=== PATIENT | male | born 1950 | race Caucasian/White ===

== ENCOUNTER 2018-08-18 19:30 | Outpatient (CLI) | payer BC | END 2018-08-18 19:31 | disposition home or self-care (01) | LOC: SLEEPLAB 19:30 | PROVIDERS: ATTEND Family Medicine | DX: G47.10 Hypersomnia, unspecified (principal); R53.83 Other fatigue; R40.0 Somnolence; R06.83 Snoring; G47.00 Insomnia, unspecified; I10 Essential (primary) hypertension; I25.10 Atherosclerotic heart disease of native coronary artery without angina pectoris; G47.33 Obstructive sleep apnea (adult) (pediatric) | CPT/HCPCS: 95811 ==

== ENCOUNTER 2021-09-08 14:31 | Outpatient (CLI) | payer MEDICARE, BC ==
[2021-09-08 15:54] LABS: #Basophils 0.1 10x3/uL (0.0-0.2); #Eosinphils 0.3 10x3/uL (0.0-0.5); #Monocytes 0.8 10x3/uL (0.0-1.1); #Neutrophils 3.5 10x3/uL (1.5-8.4); %Basophils 0.8 % (0.0-2.0); %Eosinophils 3.5 % (0.0-6.0); %Lymphocytes 37.4 % (18.0-47.0); %Monocytes 10.7 % (0.0-10.0); %Neutrophils 47.1 % (40.0-75.0); Hemoglobin 13.4 g/dL (13.5-17.5); Mean Corpuscular HGB CONC 32.4 g/dL (32.0-36.0); Mean Corpuscular Hemoglobin 31.1 pg (27.0-33.0); Mean Corpuscular Volume 95.8 fl (81.2-95.1); Mean Platelet Volume 9.6 fl (7.4-10.4); Platelet Count 209 10x3/uL (150-450); RBC Distribution Width 12.4 % (11.5-14.5); Red Blood Cell (RBC) Count 4.31 10x6/uL (4.32-5.72); White Blood Cell (WBC) Count 7.4 10x3/uL (3.5-10.5)
[2021-09-08 16:08] LABS: Bilirubin Neg (Negative); Blood, Urine 50 (Negative); Clarity Clear (Clear); Glucose, Urine (Dipstick) Normal (Negative); Ketone, Urine 5 mg/dL (Negative); Leukocyte Negative (Negative); Nitrite Negative (Negative); Protein, Urine (Dipstick) 15 mg/dl (Neg-Trace); Specific Gravity, Urine 1.025 (1.002-1.036)
[2021-09-08 16:19] LABS: Anion Gap 13 mmol/L (10-20); BUN (Urea Nitrogen) 15 mg/dL (8.4-25.7); Calc. Creatinine Clearance 0 mL/min (70-130); Calcium 8.8 mg/dL (7.8-10.44); Carbon Dioxide 28 mmol/L (23-31); Chloride 106 mmol/L (98-107); Glucose 90 mg/dL (80-115); Potassium 4.2 mmol/L (3.5-5.1); Sodium 143 mmol/L (136-145)
[2021-09-09 13:49] LABS: SARS-CoV-2 PCR by NAA Not Detected (NotDetected)
== END 2021-09-08 14:32 | disposition home or self-care (01) ==
LOC: LABBT 14:31
PROVIDERS: ATTEND Orthopaedic Surgery Hand Surgery
DX: Z01.818 Encounter for other preprocedural examination (principal); M65.321 Trigger finger, right index finger; M19.041 Primary osteoarthritis, right hand; M15.1 Heberden's nodes (with arthropathy); Z20.822 Contact with and (suspected) exposure to COVID-19
CPT/HCPCS: 80048; 81003; 85025; 93005; U0003; U0005; 93010

== ENCOUNTER 2021-09-13 05:36 | Day surgery (SDC) | payer MEDICARE, BC ==
[2021-09-06 11:49] VITALS: BMI 29.6
[2021-09-13] MEDS ORDERED: ceFAZolin 2 GM/DEX 5% 100 ML BAG ONE ×2 (06:26→08:48)
[2021-09-13 07:30] LABS: #Basophils 0.1 thou/uL (0.0-0.2); #Eosinphils 0.2 thou/uL (0.0-0.7); #Lymphocytes 3.1 thou/uL (1.20-3.40); #Monocytes 0.6 thou/uL (0.11-0.59); #Neutrophils 4.2 thou/uL (1.40-6.50); %Basophils 1.3 % (0.0-1.0); %Neutrophils 50.7 % (42.0-75.0); Hemoglobin 14.1 g/dL (14.0-18.0); Mean Corpuscular HGB CONC 33.5 g/dL (32.0-36.0); Mean Corpuscular Hemoglobin 31.8 pg (27.0-31.0); Mean Corpuscular Volume 94.9 fL (78.0-98.0); Mean Platelet Volume 7.2 fL (7.4-10.4); Platelet Count 196 thou/uL (130-400); RBC Distribution Width 11.8 % (11.5-14.5); Red Blood Cell (RBC) Count 4.45 mill/uL (4.70-6.10); White Blood Cell (WBC) Count 8.2 thou/uL (4.8-10.8)
[2021-09-13] MEDS ORDERED: Midazolam HCl 2 mg/2 ml Vial ONE (08:12)
[2021-09-13] MEDS ORDERED: Fentanyl 100 MCG/2 ML VIAL ONE (08:12)
[2021-09-13] MEDS ORDERED: Bupivacaine PF 0.5% 30 ML VIAL ONE ×2 (08:30→11:28)
[2021-09-13] MEDS ORDERED: Bacitracin Zinc Ointment 30 gm TUBE ONE (08:30)
[2021-09-13] MEDS ORDERED: Neomycin-Polymyxin 1 ML AMP ONE (08:30)
[2021-09-13] MEDS ORDERED: Betamet Acet/Betamet Na Ph 30 MG/5 ML VIAL ONE (08:30)
[2021-09-13 08:49] LABS: Bacteria/HPF None Seen HPF (None Seen); Bilirubin Negative (Negative); Blood, Urine Negative (Negative); Clarity Clear (Clear); Glucose, Urine (Dipstick) Normal (Negative); Ketone, Urine Negative (Negative); Leukocyte Negative Leu/uL (Negative); Nitrite Negative (Negative); Protein, Urine (Dipstick) 50 mg/dL (Neg-Trace); RBC/HPF 0-3 HPF (0-3); Specific Gravity, Urine 1.024 (1.002-1.036); Squamous Epithelial None Seen HPF (0-3); Urobilinogen Normal mg/dL (Less than 2); WBC/HPF 0-3 HPF (0-3); pH, Urine 6.5 (5.0-9.0)
[2021-09-13 08:51] LABS: Urine Culture Reflex No No
[2021-09-13] MEDS ORDERED: Bupivacaine HCl 0.5%/Epinephrine 1:200,000/PF 30 ml Vial ONE (08:56)
[2021-09-13] MEDS ORDERED: Lidocaine 1% PF 5 ML VIAL ONE (08:56)
[2021-09-13] MEDS ORDERED: PROPOFOL 200 MG/20 ML VIAL ONE (08:56)
[2021-09-13] MEDS ORDERED: ePHEDrine 50 MG/ML VIAL ONE (08:56)
[2021-09-13] MEDS ORDERED: Ketorolac Tromethamine 30 MG/ML VIAL ONE (08:56)
[2021-09-13] MEDS ORDERED: Ondansetron PF 4 MG/2 ML Vial ONE (08:56)
== END 2021-09-13 13:40 | disposition home or self-care (01) ==
LOC: SDC 05:36
PROVIDERS: ATTEND Orthopaedic Surgery Hand Surgery
PROC: 0LN70ZZ Release Right Hand Tendon, Open Approach (ICD-10-PCS; principal; 2021-09-13)
PROC: 0LN70ZZ Release Right Hand Tendon, Open Approach (ICD-10-PCS; 2021-09-13)
PROC: 0LB70ZZ Excision of Right Hand Tendon, Open Approach (ICD-10-PCS; 2021-09-13)
PROC: 0RGW04Z Fusion of Right Finger Phalangeal Joint with Internal Fixation Device, Open Approach (ICD-10-PCS; 2021-09-13)
PROC: 0RGW04Z Fusion of Right Finger Phalangeal Joint with Internal Fixation Device, Open Approach (ICD-10-PCS; 2021-09-13)
PROC: 3E0T3BZ Introduction of Anesthetic Agent into Peripheral Nerves and Plexi, Percutaneous Approach (ICD-10-PCS; 2021-09-13)
DX: M19.041 Primary osteoarthritis, right hand (principal); M65.321 Trigger finger, right index finger; M65.351 Trigger finger, right little finger; M65.841 Other synovitis and tenosynovitis, right hand; M67.441 Ganglion, right hand; E11.9 Type 2 diabetes mellitus without complications; E78.5 Hyperlipidemia, unspecified; I25.2 Old myocardial infarction; G47.30 Sleep apnea, unspecified; I10 Essential (primary) hypertension; N52.9 Male erectile dysfunction, unspecified; M10.9 Gout, unspecified; Z86.16 Personal history of COVID-19; Z79.82 Long term (current) use of aspirin; Z79.84 Long term (current) use of oral hypoglycemic drugs; Z79.899 Other long term (current) drug therapy; Z95.1 Presence of aortocoronary bypass graft; Z98.890 Other specified postprocedural states
CPT/HCPCS: 26055; 26160; 26860; 26861; 73140; 81001; 85025; C1894; 36415; 76000; J0702; J1885; J2250; J2405; J2704; J3010; J3490; S0020

== ENCOUNTER 2022-01-17 15:01 | Outpatient (CLI) | payer MEDICARE, BC | END 2022-01-17 15:02 | disposition home or self-care (01) | LOC: BICCT 15:01 | PROVIDERS: ATTEND Orthopaedic Surgery Hand Surgery | DX: S42.454A Nondisplaced fracture of lateral condyle of right humerus, initial encounter for closed fracture (principal); M25.511 Pain in right shoulder; M25.731 Osteophyte, right wrist ==

== ENCOUNTER 2022-02-14 09:00 | Outpatient (CLI) | payer MEDICARE, BC | END 2022-02-14 09:01 | disposition home or self-care (01) | LOC: BICMRI 09:00 | PROVIDERS: ATTEND Physician Assistant | DX: M54.42 Lumbago with sciatica, left side (principal); M47.816 Spondylosis without myelopathy or radiculopathy, lumbar region; M47.817 Spondylosis without myelopathy or radiculopathy, lumbosacral region; M47.815 Spondylosis without myelopathy or radiculopathy, thoracolumbar region; M48.8X6 Other specified spondylopathies, lumbar region | CPT/HCPCS: 72148 ==

== ENCOUNTER 2022-03-24 09:33 | Outpatient (CLI) | payer MEDICARE, BC | END 2022-03-24 09:34 | disposition home or self-care (01) | LOC: MRI 09:33 | PROVIDERS: ATTEND Orthopaedic Surgery Hand Surgery | DX: M75.101 Unspecified rotator cuff tear or rupture of right shoulder, not specified as traumatic (principal); M75.50 Bursitis of unspecified shoulder; M75.01 Adhesive capsulitis of right shoulder ==

== ENCOUNTER 2022-05-11 10:13 | Outpatient (CLI) | payer MEDICARE, BC ==
[2022-05-11 11:29] LABS: Hemoglobin 14.7 g/dL (13.5-17.5); Mean Corpuscular HGB CONC 34.2 g/dL (32.0-36.0); Mean Corpuscular Hemoglobin 31.6 pg (27.0-33.0); Mean Corpuscular Volume 92.5 fl (81.2-95.1); Mean Platelet Volume 10.1 fl (7.4-10.4); Platelet Count 166 10x3/uL (150-450); RBC Distribution Width 13.3 % (11.5-14.5); Red Blood Cell (RBC) Count 4.65 10x6/uL (4.32-5.72)
[2022-05-11 11:52] LABS: PTT 25.3 sec (22.0-33.0); Prothrombin Time 10.7 sec (9.5-12.1)
[2022-05-11 12:04] LABS: Anion Gap 14 mmol/L (10-20); BUN (Urea Nitrogen) 16 mg/dL (8.4-25.7); Calc. Creatinine Clearance 0 mL/min (70-130); Calcium 8.9 mg/dL (7.8-10.44); Carbon Dioxide 27 mmol/L (23-31); Chloride 105 mmol/L (98-107); Estimated GFR 91; Glucose 152 mg/dL (80-115); Sodium 142 mmol/L (136-145)
== END 2022-05-11 10:14 | disposition home or self-care (01) ==
LOC: LABBT 10:13
PROVIDERS: ATTEND Surgery
DX: Z01.818 Encounter for other preprocedural examination (principal); M51.16 Intervertebral disc disorders with radiculopathy, lumbar region; M48.062 Spinal stenosis, lumbar region with neurogenic claudication; Z20.822 Contact with and (suspected) exposure to COVID-19
CPT/HCPCS: 80048; 85027; 85610; 85730; 87811; 93005; 93010

== ENCOUNTER 2022-05-16 07:59 | Observation (INO) | payer MEDICARE, BC ==
[2022-05-16] MEDS ORDERED: SUGAMMADEX SODIUM 200 MG/2 ML VIAL ONE (09:06)
[2022-05-16] MEDS ORDERED: HYDROmorphone 2 MG/ML VIAL ONE (09:06)
[2022-05-16] MEDS ORDERED: Thrombin 5000 UNITS/5 ML VIAL ONE ×3 (09:25→12:13)
[2022-05-16] MEDS ORDERED: Bacitracin Zinc Ointment 30 gm TUBE ONE (09:26)
[2022-05-16] MEDS ORDERED: CEFAZOLIN 2 GM VIAL ONE (09:58)
[2022-05-16] MEDS ORDERED: Sodium Chloride 0.9% 100 ML ONE (09:58)
[2022-05-16] MEDS ORDERED: Acetaminophen 325 MG TAB PO PRN (10:03)
[2022-05-16] MEDS ORDERED: Acetaminophen/Codeine 30-300mg Tablet PO PRN (10:03)
[2022-05-16] MEDS ORDERED: traMADol HCl 50 MG TAB PO PRN (10:03)
[2022-05-16] MEDS ORDERED: Morphine 2 MG/ML VIAL SLOW IVP PRN (10:05)
[2022-05-16] MEDS ORDERED: diphenhydrAMINE 25 MG CAP PO PRN (10:05)
[2022-05-16] MEDS ORDERED: Ketorolac Tromethamine 30 MG/ML VIAL ONE (10:07)
[2022-05-16] MEDS ORDERED: Phenylephrine 10 MG/ML VIAL ONE (10:07)
[2022-05-16] MEDS ORDERED: Dexamethasone 20 MG/5 ML VIAL ONE (10:07)
[2022-05-16] MEDS ORDERED: Ondansetron PF 4 MG/2 ML Vial ONE (10:07)
[2022-05-16] MEDS ORDERED: hydrALAZINE 20 MG/ML VIAL SLOW IVP PRN (10:07)
[2022-05-16] MEDS ORDERED: Esmolol 100 MG/10 ML VIAL ONE ×2 (10:07)
[2022-05-16] MEDS ORDERED: Lidocaine 1% MPF 2 ML VIAL ONE (10:07)
[2022-05-16] MEDS ORDERED: tiZANidine HCl 4 MG TAB PO PRN (10:07)
[2022-05-16] MEDS ORDERED: ePHEDrine 50 MG/ML VIAL ONE (10:07)
[2022-05-16] MEDS ORDERED: Rocuronium Bromide 10 MG/ML (10ML VIAL) ONE (10:07)
[2022-05-16] MEDS ORDERED: PROPOFOL 200 MG/20 ML VIAL ONE (10:07)
[2022-05-16] MEDS ORDERED: Promethazine HCl 12.5 MG in Sodium Chloride 0.9% 50 ML IVPB PRN (10:09)
[2022-05-16] MEDS ORDERED: Meperidine HCl/PF 25 MG/ML VIAL SLOW IVP PRN (12:37)
[2022-05-16] MEDS ORDERED: HYDROmorphone 2 MG/ML VIAL SLOW IVP PRN (12:37)
[2022-05-16] MEDS ORDERED: Promethazine HCl 25 MG/ML VIAL IVPB PRN (12:37)
[2022-05-16] MEDS ORDERED: fentaNYL Citrate/PF 100 MCG/2 ML SYRINGE ONE (14:02)
[2022-05-16] MEDS ORDERED: Fentanyl 100 MCG/2 ML VIAL ONE (14:23)
[2022-05-16 16:35] VITALS: BMI 29.4
[2022-05-16] MEDS: CEFAZOLIN 2 GM in Sodium Chloride 0.9% 100 ML IVPB SCH (17:53)
[2022-05-16] MEDS: Sodium Chloride 0.9% 1,000 ML IV SCH ×2 (17:53→23:39)
[2022-05-16] MEDS: HYDROcodone/Acetaminophen 7.5/325 mg Tablet PO PRN (19:55)
[2022-05-16] MEDS ORDERED: Atorvastatin Calcium 40 MG TAB PO SCH (21:00)
[2022-05-16] MEDS ORDERED: Ezetimibe 10 MG TAB PO SCH (21:00)
[2022-05-17] MEDS: CEFAZOLIN 2 GM in Sodium Chloride 0.9% 100 ML IVPB SCH (01:29)
[2022-05-17] MEDS ORDERED: metFORMIN 500 MG TAB PO SCH (08:00)
[2022-05-17 08:17] VITALS: BP 112/70; TEMP 98.1
[2022-05-17] MEDS: HYDROcodone/Acetaminophen 7.5/325 mg Tablet PO PRN (08:30)
[2022-05-17] MEDS ORDERED: Magnesium Oxide 250 MG TAB PO SCH (09:00)
[2022-05-17] MEDS ORDERED: Citalopram 20 MG TAB PO SCH (09:00)
[2022-05-17] MEDS ORDERED: Aspirin Chewable 81 MG TAB PO SCH (09:00)
[2022-05-17] MEDS ORDERED: Atenolol 25 MG TAB PO SCH (09:00)
[2022-05-17] MEDS ORDERED: Cholecalciferol 1,000 UNITS (25 MCG) TAB PO SCH (09:00)
[2022-05-17] MEDS ORDERED: PREVAGEN PO SCH (09:00)
== END 2022-05-17 11:12 | disposition home or self-care (01) ==
LOC: SDC 07:59 → T4-B 10:09
PROVIDERS: ADMIT Surgery; ATTEND Surgery
PROC: 01NB0ZZ Release Lumbar Nerve, Open Approach (ICD-10-PCS; principal; 2022-05-16)
PROC: 0ST20ZZ Resection of Lumbar Vertebral Disc, Open Approach (ICD-10-PCS; 2022-05-16)
DX: M51.16 Intervertebral disc disorders with radiculopathy, lumbar region (principal); M48.062 Spinal stenosis, lumbar region with neurogenic claudication; Z79.82 Long term (current) use of aspirin; Z79.84 Long term (current) use of oral hypoglycemic drugs; Z79.899 Other long term (current) drug therapy; Z95.1 Presence of aortocoronary bypass graft
CPT/HCPCS: 76000; J0690; J1100; J1170; J1885; J2370; J2405; J2704; J3010; J3370; J3490; J7050

== ENCOUNTER 2023-08-31 12:42 | Outpatient (CLI) | payer MEDICARE, BC | END 2023-08-31 12:43 | disposition home or self-care (01) | LOC: SCSMRI 12:42 | PROVIDERS: ATTEND Specialist | DX: M51.16 Intervertebral disc disorders with radiculopathy, lumbar region (principal); M47.26 Other spondylosis with radiculopathy, lumbar region; M48.061 Spinal stenosis, lumbar region without neurogenic claudication; Z98.890 Other specified postprocedural states | CPT/HCPCS: 72158 ==